=== PATIENT | male | born 1940 | race Caucasian/White ===

== ENCOUNTER 2019-05-23 08:34 | Observation (INO) ==
[2019-05-23] MEDS ORDERED: Dexamethasone 4 MG/ML VIAL ONE (08:43)
[2019-05-23] MEDS ORDERED: Lidocaine -MPF 2% 2 ML VIAL ONE (08:43)
[2019-05-23] MEDS ORDERED: *HR* Succinylcholine 200 MG/10 ML VIAL IVP ONE (08:43)
[2019-05-23] MEDS ORDERED: Ondansetron 4 MG/2 ML VIAL ONE (08:43)
[2019-05-23] MEDS ORDERED: *HR* Rocuronium Bromide 50 MG/5 ML VIAL ONE (08:43)
[2019-05-23] MEDS ORDERED: *HR* FentaNYL (PF) 100 MCG/2 ML VIAL ONE (08:44)
[2019-05-23] MEDS ORDERED: *HR* Propofol 200 MG/20 ML VIAL IVP ONE (08:44)
[2019-05-23] MEDS ORDERED: Celecoxib 200 MG CAPSULE PO ONE (08:58)
[2019-05-23] MEDS ORDERED: Pregabalin 50 MG CAPSULE PO ONE (08:58)
[2019-05-23] MEDS ORDERED: *HR* Promethazine 25 MG/ML VIAL IVP PRN (08:59)
[2019-05-23] MEDS ORDERED: *HR* OxyCODONE Immed Rel 5 MG TABLET PO PRN (08:59)
[2019-05-23] MEDS ORDERED: *HR* HYDROmorphone (PF) 1 MG/ML SYRINGE IVP PRN (08:59)
[2019-05-23] MEDS ORDERED: Ringers Solution, Lactated 1,000 ML IVC SCH ×2 (09:00→09:15)
[2019-05-23] MEDS ORDERED: Albuterol 2.5 MG/3 ML NEBULIZER IH PRN (09:14)
[2019-05-23] MEDS ORDERED: cefOXitin 2,000 MG in Water for inj. (sterile) 20 ML IVP ONE (09:14)
[2019-05-23] MEDS ORDERED: *HR* HYDROcodone/Acet 5/325 mg TABLET PO ONE (10:10)
[2019-05-23] MEDS ORDERED: Naloxone 0.4 MG/ML INJ IVP PRN (13:13)
[2019-05-23] MEDS ORDERED: 0.9 % Sodium Chloride 1,000 ML IVC SCH (13:13)
[2019-05-23] MEDS ORDERED: Ondansetron 4 MG/2 ML VIAL IVP PRN (13:13)
[2019-05-23] MEDS ORDERED: *HR* Metoprolol 5 MG/5 ML VIAL IVP PRN (13:13)
[2019-05-23] MEDS: cefOXitin 2,000 MG in Water for inj. (sterile) 20 ML IVP SCH (16:00)
[2019-05-23] MEDS: Ipratropium/Albuterol Neb 3 ML IH SCH ×2 (16:37→22:10)
[2019-05-23] MEDS: Famotidine 20 MG TABLET PO SCH (20:07)
[2019-05-23] MEDS: *HR* HYDROcodone/Acet 5/325 mg TABLET PO PRN (22:23)
[2019-05-24] MEDS: cefOXitin 2,000 MG in Water for inj. (sterile) 20 ML IVP SCH ×2 (00:23→07:42)
[2019-05-24] MEDS: *HR* HYDROcodone/Acet 5/325 mg TABLET PO PRN (02:30)
[2019-05-24] MEDS: Ipratropium/Albuterol Neb 3 ML IH SCH ×4 (03:10→21:51)
[2019-05-24 05:31] LABS: Basophils % 0.1 %; Hemoglobin 13.6 g/dL (12.9-16.9); Immature Granulocytes % 0.4 % (0-4); Lymphocytes # 0.8 K/mcL (0.6-4.6); Mean Corpuscular HGB Conc 33.2 g/dL (31.6-35.5); Mean Corpuscular Hemoglobin 32.6 pg (28.0-33.3); Mean Corpuscular Volume 98.3 fL (83.0-100.0); Mean Platelet Volume 9.5 fL (9.4-12.4); Monocytes # 0.8 K/mcL (0.0-1.3); Monocytes % 7.1 %; Platelet Count 192 K/mcL (140-400); Red Blood Count 4.17 M/mcL (4.19-5.50); Red Cell Distribution Width 14.3 % (11.5-14.5); Segmented Neutrophils % 85.4 %; White Blood Count 11.8 K/mcL (4.3-11.1)
[2019-05-24 05:42] LABS: Alanine Aminotransferase 76 Units/L (7-52); Albumin 3.5 g/dL (3.5-5.7); Albumin/Globulin Ratio 1.4 (1.1-2.2); Alkaline Phosphatase 90 Units/L (34-104); Aspartate Amino Transferase 55 Units/L (13-39); BUN/Creatinine Ratio 17 (6-26); Bilirubin,Direct 0.3 mg/dL (0.0-0.2); Bilirubin,Total 1.3 mg/dL (0.3-1.0); Blood Urea Nitrogen 13 mg/dL (8-23); Calcium 8.2 mg/dL (8.6-10.3); Carbon Dioxide 22 mEq/L (23-29); Chloride 105 mEq/L (98-107); Globulin 2.5 g/dL (2.4-3.5); Glucose 163 mg/dL (70-105); Osmolality,Calculated 288 (280-300); Potassium 4.3 mEq/L (3.5-5.1); Sodium 137 mEq/L (136-145); eGFR For African Americans > 60 (> 60); eGFR For Non-African Americans > 60 (> 60)
[2019-05-24] MEDS: Famotidine 20 MG TABLET PO SCH ×2 (07:43→20:24)
[2019-05-24] MEDS: Aspirin 81 MG TAB.CHEW PO SCH (09:52)
[2019-05-24] MEDS: *HR* OxyCODONE/APAP 5/325 TABLET PO PRN ×2 (14:39→20:24)
[2019-05-24] MEDS ORDERED: *HR* Heparin 5,000 UNIT/ML VIAL SQ SCH (18:00)
[2019-05-24] MEDS ORDERED: clonazePAM 1 MG TABLET PO SCH (21:00)
[2019-05-25] MEDS: Ipratropium/Albuterol Neb 3 ML IH SCH ×2 (03:17→10:13)
[2019-05-25] MEDS: *HR* OxyCODONE/APAP 5/325 TABLET PO PRN ×2 (04:24→10:29)
[2019-05-25 05:58] LABS: Basophils % 0.3 %; Eosinophils % 0.4 %; Hematocrit 40.1 % (37.5-50.1); Hemoglobin 13.1 g/dL (12.9-16.9); Immature Granulocytes % 0.4 % (0-4); Immature Platelets 1.9 % (1.1-6.1); Lymphocytes # 1.1 K/mcL (0.6-4.6); Mean Corpuscular HGB Conc 32.7 g/dL (31.6-35.5); Mean Corpuscular Hemoglobin 32.6 pg (28.0-33.3); Mean Corpuscular Volume 99.8 fL (83.0-100.0); Mean Platelet Volume 9.5 fL (9.4-12.4); Monocytes # 0.7 K/mcL (0.0-1.3); Monocytes % 9.3 %; Neutrophils # 5.7 K/mcL (1.6-8.9); Platelet Count 188 K/mcL (140-400); Red Blood Count 4.02 M/mcL (4.19-5.50); Red Cell Distribution Width 14.6 % (11.5-14.5); Segmented Neutrophils % 75.6 %; White Blood Count 7.5 K/mcL (4.3-11.1)
[2019-05-25 06:15] LABS: Albumin 3.6 g/dL (3.5-5.7); Albumin/Globulin Ratio 1.6 (1.1-2.2); BUN/Creatinine Ratio 12 (6-26); Bilirubin,Direct 0.2 mg/dL (0.0-0.2); Bilirubin,Indirect 0.8 mg/dL (0.0-1.0); Blood Urea Nitrogen 11 mg/dL (8-23); Calcium 8.5 mg/dL (8.6-10.3); Carbon Dioxide 28 mEq/L (23-29); Chloride 105 mEq/L (98-107); Globulin 2.3 g/dL (2.4-3.5); Glucose 139 mg/dL (70-105); Osmolality,Calculated 294 (280-300); Potassium 3.7 mEq/L (3.5-5.1); Sodium 141 mEq/L (136-145); Total Protein 5.9 g/dL (6.4-8.9); eGFR For African Americans > 60 (> 60); eGFR For Non-African Americans > 60 (> 60)
[2019-05-25] MEDS: Famotidine 20 MG TABLET PO SCH (10:29)
[2019-05-25] MEDS: Aspirin 81 MG TAB.CHEW PO SCH (10:29)
[2019-05-25 11:21] VITALS: BP 165/86
== END 2019-05-25 13:48 | disposition home or self-care (01) ==
LOC: 3ANU 08:34 → SAMDAY 08:34 → 3ANU 13:28
PROVIDERS: ADMIT Surgery; ATTEND Surgery

== ENCOUNTER 2021-04-13 03:32 | Inpatient (IN) ==
[2021-04-13 05:41] LABS: Basophils # 0.1 K/mcL (0.0-0.2); Basophils % 0.7 %; Eosinophils # 0.3 K/mcL (0.0-0.6); Eosinophils % 3.6 %; Hematocrit 41.7 % (37.5-50.1); Hemoglobin 13.3 g/dL (12.9-16.9); Immature Granulocytes % 0.3 % (0-4); Lymphocytes # 1.8 K/mcL (0.6-4.6); Lymphocytes % 25.1 %; Mean Corpuscular HGB Conc 31.9 g/dL (31.6-35.5); Mean Corpuscular Hemoglobin 30.6 pg (28.0-33.3); Mean Corpuscular Volume 96.1 fL (83.0-100.0); Mean Platelet Volume 9.1 fL (9.4-12.4); Monocytes # 0.6 K/mcL (0.0-1.3); Neutrophils # 4.4 K/mcL (1.6-8.9); Platelet Count 201 K/mcL (140-400); Red Blood Count 4.34 M/mcL (4.19-5.50); Red Cell Distribution Width 14.6 % (11.5-14.5); Segmented Neutrophils % 61.3 %; White Blood Count 7.1 K/mcL (4.3-11.1)
[2021-04-13 06:03] LABS: BUN/Creatinine Ratio 22 (6-26); Blood Urea Nitrogen 17 mg/dL (8-23); Calcium 8.8 mg/dL (8.6-10.3); Carbon Dioxide 26 mEq/L (23-29); Chloride 107 mEq/L (98-107); Glucose 97 mg/dL (70-105); Osmolality,Calculated 293 (280-300); Potassium 3.8 mEq/L (3.5-5.1); Sodium 141 mEq/L (136-145); Troponin I < 0.03 ng/mL (< 0.04); eGFR For African Americans > 60 (> 60); eGFR For Non-African Americans > 60 (> 60)
[2021-04-13 06:34] LABS: Influenza A PCR Negative (Negative); Influenza B PCR Negative (Negative); Resp. Syncytial Virus PCR Negative (Negative)
[2021-04-13 06:35] LABS: SARS-CoV-2 by PCR (In House) Negative (Negative)
[2021-04-13] MEDS ORDERED: levoFLOXacin 750 MG/150 ML 750 MG/150 ML BAG IVPB ONE (08:11)
[2021-04-13] MEDS ORDERED: Pantoprazole 40 MG VIAL IVP ONE (08:11)
[2021-04-13] MEDS ORDERED: MethylPREDNISolone 40 MG/ML VIAL IVP ONE (08:11)
[2021-04-13] MEDS ORDERED: Benzonatate 100 MG CAPSULE PO ONE (08:12)
[2021-04-13] MEDS ORDERED: Naloxone 0.4 MG/ML INJ IVP PRN (08:22)
[2021-04-13] MEDS ORDERED: Ondansetron 4 MG/2 ML VIAL IVP PRN (08:22)
[2021-04-13 09:09] LABS: INR 1.1; Prothrombin Time 11.9 Seconds (9.4-12.1)
[2021-04-13 09:11] LABS: Activated Partial Thrombo Time 33.3 Seconds (26.0-36.0)
[2021-04-13] MEDS ORDERED: Dexmedetomidine HCl 400 MCG/100 ML MLS IVC ONE (10:30)
[2021-04-13] MEDS: Ipratropium/Albuterol Neb 3 ML IH SCH ×3 (10:53→20:18)
[2021-04-13] MEDS ORDERED: *HR* Propofol 200 MG/20 ML VIAL IVP ONE (11:01)
[2021-04-13] MEDS ORDERED: *HR* EPINEPHrine 1 MG/10 ML SYRINGE INTRATRACH PRN (11:22)
[2021-04-13] MEDS: FentaNYL (PF) 1,000 MCG/100 ML IV.SOLN IVC SCH ×2 (11:45→17:54)
[2021-04-13] MEDS: MethylPREDNISolone 40 MG/ML VIAL IVP SCH ×2 (11:59→21:21)
[2021-04-13] MEDS: Midazolam HCl 50 MG/100 ML IV.SOLN IVC SCH (11:59)
[2021-04-13] MEDS: 0.9 % Sodium Chloride 1,000 ML IVC SCH ×2 (12:22→21:22)
[2021-04-13 16:49] LABS: ABG Base Excess -1 mEq/L (-2 to 3); ABG HCO3 26 mEq/L (21-27); ABG Oxygen Saturation 98 % (95-98); ABG PCO2 55 mmHg (35-45); ABG PH 7.29 pH Units (7.32-7.45); ABG PO2 110 mmHg (85-104); ABG TCO2 28 mEq/L (20-26); Blood Gas Modality ASSIST CONTROL; Blood Gas VT 450 cc
[2021-04-13 16:53] LABS: Basophils % 0.1 %; Hematocrit 41.6 % (37.5-50.1); Hemoglobin 13.3 g/dL (12.9-16.9); Immature Granulocytes % 0.3 % (0-4); Lymphocytes # 0.5 K/mcL (0.6-4.6); Lymphocytes % 7.1 %; Mean Corpuscular Hemoglobin 31.1 pg (28.0-33.3); Mean Corpuscular Volume 97.4 fL (83.0-100.0); Mean Platelet Volume 9.4 fL (9.4-12.4); Monocytes # 0.1 K/mcL (0.0-1.3); Monocytes % 0.9 %; Neutrophils # 6.4 K/mcL (1.6-8.9); Platelet Count 192 K/mcL (140-400); Red Blood Count 4.27 M/mcL (4.19-5.50); Red Cell Distribution Width 14.7 % (11.5-14.5); Segmented Neutrophils % 91.6 %
[2021-04-13] MEDS ORDERED: Artificial Tears SOLN 15 ML BOTTLE BOTH EYES PRN (17:43)
[2021-04-13] MEDS: Artificial Tears SOLN 15 ML BOTTLE BOTH EYES SCH (21:21)
[2021-04-13] MEDS: Chlorhexidine Rinse 15 ML MOUTHWASH MM SCH (21:21)
[2021-04-14] MEDS ORDERED: Ringers Solution, Lactated 1,000 ML IVC ONE (02:36)
[2021-04-14] MEDS: Ipratropium/Albuterol Neb 3 ML IH SCH ×4 (03:18→21:46)
[2021-04-14] MEDS: FentaNYL (PF) 1,000 MCG/100 ML IV.SOLN IVC SCH ×2 (03:53→09:16)
[2021-04-14 04:27] LABS: ABG Base Excess -4 mEq/L (-2 to 3); ABG HCO3 23 mEq/L (21-27); ABG Oxygen Saturation 93 % (95-98); ABG PCO2 46 mmHg (35-45); ABG PO2 75 mmHg (85-104); ABG TCO2 24 mEq/L (20-26); Blood Gas VT 450 cc
[2021-04-14] MEDS: MethylPREDNISolone 40 MG/ML VIAL IVP SCH ×3 (05:28→19:48)
[2021-04-14] MEDS: Artificial Tears SOLN 15 ML BOTTLE BOTH EYES SCH ×6 (05:55→19:48)
[2021-04-14 06:30] LABS: Basophils % 0.1 %; Hemoglobin 11.9 g/dL (12.9-16.9); Immature Granulocytes % 0.3 % (0-4); Lymphocytes # 0.4 K/mcL (0.6-4.6); Lymphocytes % 6.3 %; Mean Corpuscular HGB Conc 31.3 g/dL (31.6-35.5); Mean Platelet Volume 9.6 fL (9.4-12.4); Monocytes # 0.2 K/mcL (0.0-1.3); Monocytes % 2.4 %; Neutrophils # 6.3 K/mcL (1.6-8.9); Platelet Count 184 K/mcL (140-400); Red Blood Count 3.84 M/mcL (4.19-5.50); Red Cell Distribution Width 14.6 % (11.5-14.5); Segmented Neutrophils % 90.9 %
[2021-04-14 06:50] LABS: BUN/Creatinine Ratio 32 (6-26); Blood Urea Nitrogen 25 mg/dL (8-23); Calcium 7.8 mg/dL (8.6-10.3); Carbon Dioxide 23 mEq/L (23-29); Chloride 108 mEq/L (98-107); Glucose 160 mg/dL (70-105); Osmolality,Calculated 296 (280-300); Potassium 3.9 mEq/L (3.5-5.1); Sodium 139 mEq/L (136-145); eGFR For African Americans > 60 (> 60); eGFR For Non-African Americans > 60 (> 60)
[2021-04-14] MEDS: Chlorhexidine Rinse 15 ML MOUTHWASH MM SCH ×2 (08:24→19:47)
[2021-04-14] MEDS: 0.9 % Sodium Chloride 1,000 ML IVC SCH ×2 (08:24→21:55)
[2021-04-14] MEDS: Pantoprazole 40 MG VIAL IVP SCH (08:24)
[2021-04-14] MEDS: levoFLOXacin 750 MG/150 ML 750 MG/150 ML BAG IVPB SCH (08:25)
[2021-04-14] MEDS: Midazolam HCl 50 MG/100 ML IV.SOLN IVC SCH (09:50)
[2021-04-14] MEDS ORDERED: Melatonin 3 MG TABLET PO PRN (17:54)
[2021-04-15] MEDS: Artificial Tears SOLN 15 ML BOTTLE BOTH EYES SCH ×3 (00:51→07:09)
[2021-04-15] MEDS: GuaiFENesin/Codeine Oral Soln 5 ML UDC PO PRN ×2 (01:44→03:52)
[2021-04-15] MEDS: MethylPREDNISolone 40 MG/ML VIAL IVP SCH ×2 (03:52→12:04)
[2021-04-15] MEDS ORDERED: Menthol 1 EACH LOZENGE PO PRN (03:58)
[2021-04-15] MEDS: Ipratropium/Albuterol Neb 3 ML IH SCH ×4 (03:59→23:00)
[2021-04-15 05:50] LABS: Basophils % 0.1 %; Hematocrit 38.9 % (37.5-50.1); Hemoglobin 11.8 g/dL (12.9-16.9); Immature Granulocytes % 0.5 % (0-4); Lymphocytes # 0.7 K/mcL (0.6-4.6); Lymphocytes % 5.9 %; Mean Corpuscular HGB Conc 30.3 g/dL (31.6-35.5); Mean Corpuscular Hemoglobin 30.6 pg (28.0-33.3); Mean Platelet Volume 9.5 fL (9.4-12.4); Monocytes # 0.5 K/mcL (0.0-1.3); Platelet Count 210 K/mcL (140-400); Red Blood Count 3.85 M/mcL (4.19-5.50); Segmented Neutrophils % 89.5 %
[2021-04-15 05:52] LABS: White Blood Count 11.2 K/mcL (4.3-11.1)
[2021-04-15 06:02] LABS: BUN/Creatinine Ratio 25 (6-26); Blood Urea Nitrogen 23 mg/dL (8-23); Calcium 7.9 mg/dL (8.6-10.3); Carbon Dioxide 21 mEq/L (23-29); Chloride 111 mEq/L (98-107); Glucose 146 mg/dL (70-105); Osmolality,Calculated 300 (280-300); Potassium 4.1 mEq/L (3.5-5.1); Sodium 142 mEq/L (136-145); eGFR For African Americans > 60 (> 60); eGFR For Non-African Americans > 60 (> 60)
[2021-04-15] MEDS: Chlorhexidine Rinse 15 ML MOUTHWASH MM SCH (07:09)
[2021-04-15] MEDS ORDERED: clonazePAM 1 MG TABLET PO PRN (07:38)
[2021-04-15] MEDS: levoFLOXacin 750 MG/150 ML 750 MG/150 ML BAG IVPB SCH (08:02)
[2021-04-15] MEDS: Pantoprazole 40 MG VIAL IVP SCH (08:02)
[2021-04-15] MEDS: Midazolam HCl 50 MG/100 ML IV.SOLN IVC SCH (08:24)
[2021-04-15] MEDS ORDERED: NON-FORMULARY MEDICATION 1 EACH EACH (Pantoprazole Sodium [Protonix] 40 MG Tablet.Dr) PO SCH (09:00)
[2021-04-15] MEDS ORDERED: Budesonide/Formoterol 160/4.5 1 PUFF INH IH SCH (10:00)
[2021-04-15] MEDS ORDERED: Nicotine 21 MG PATCH.TD24 TD PRN ×2 (11:02→14:48)
[2021-04-15] MEDS: 0.9 % Sodium Chloride 1,000 ML IVC SCH (12:45)
[2021-04-15] MEDS ORDERED: Melatonin 3 MG TABLET PO PRN (14:48)
[2021-04-15] MEDS ORDERED: Ondansetron 4 MG/2 ML VIAL IVP PRN (14:48)
[2021-04-15] MEDS ORDERED: Naloxone 0.4 MG/ML INJ IVP PRN (14:48)
[2021-04-15] MEDS: clonazePAM 1 MG TABLET PO PRN (20:06)
[2021-04-15] MEDS: Budesonide/Formoterol 160/4.5 1 PUFF INH IH SCH (23:00)
[2021-04-16] MEDS: Ipratropium/Albuterol Neb 3 ML IH SCH ×4 (03:36→20:43)
[2021-04-16 05:20] LABS: VBG Ionized Calcium 1.15 mmol/L (1.15-1.35)
[2021-04-16 05:24] LABS: Basophils % 0.1 %; Hematocrit 35.5 % (37.5-50.1); Hemoglobin 11.4 g/dL (12.9-16.9); Immature Granulocytes % 0.6 % (0-4); Lymphocytes # 0.9 K/mcL (0.6-4.6); Mean Corpuscular HGB Conc 32.1 g/dL (31.6-35.5); Mean Corpuscular Hemoglobin 31.6 pg (28.0-33.3); Mean Corpuscular Volume 98.3 fL (83.0-100.0); Mean Platelet Volume 9.3 fL (9.4-12.4); Monocytes # 0.8 K/mcL (0.0-1.3); Monocytes % 7.8 %; Neutrophils # 8.3 K/mcL (1.6-8.9); Platelet Count 175 K/mcL (140-400); Red Blood Count 3.61 M/mcL (4.19-5.50); Segmented Neutrophils % 82.5 %
[2021-04-16 05:34] LABS: Alanine Aminotransferase 12 Units/L (7-52); Albumin 3.1 g/dL (3.5-5.7); Albumin/Globulin Ratio 1.4 (1.1-2.2); Alkaline Phosphatase 74 Units/L (34-104); Aspartate Amino Transferase 14 Units/L (13-39); BUN/Creatinine Ratio 38 (6-26); Bilirubin,Total 0.6 mg/dL (0.3-1.0); Blood Urea Nitrogen 28 mg/dL (8-23); Calcium 7.8 mg/dL (8.6-10.3); Carbon Dioxide 24 mEq/L (23-29); Chloride 112 mEq/L (98-107); Globulin 2.2 g/dL (2.4-3.5); Glucose 123 mg/dL (70-105); Magnesium 2.2 mg/dL (1.6-2.6); Osmolality,Calculated 301 (280-300); Phosphorous 1.6 mg/dL (2.7-4.5); Potassium 4.1 mEq/L (3.5-5.1); Sodium 142 mEq/L (136-145); Total Protein 5.3 g/dL (6.4-8.9); eGFR For African Americans > 60 (> 60); eGFR For Non-African Americans > 60 (> 60)
[2021-04-16] MEDS: MethylPREDNISolone 40 MG/ML VIAL IVP SCH (09:31)
[2021-04-16] MEDS: Budesonide/Formoterol 160/4.5 1 PUFF INH IH SCH ×2 (09:41→20:44)
[2021-04-16] MEDS: GuaiFENesin/Codeine Oral Soln 5 ML UDC PO PRN (13:42)
[2021-04-16] MEDS: levoFLOXacin 750 MG/150 ML 750 MG/150 ML BAG IVPB SCH (13:42)
[2021-04-16] MEDS: Menthol 1 EACH LOZENGE PO PRN (13:53)
[2021-04-16] MEDS ORDERED: Gadolinium Contrast Agent (WT Based) IV PRN (14:21)
[2021-04-16] MEDS: clonazePAM 1 MG TABLET PO PRN (20:52)
[2021-04-17] MEDS ORDERED: *HR* LORazepam 2 MG/ML VIAL IVP PRN
[2021-04-17] MEDS ORDERED: Hydrocortisone Sodium Succ 100 MG/2 ML VIAL IVP PRN
[2021-04-17] MEDS ORDERED: Famotidine 20 MG/2 ML VIAL IVP PRN
[2021-04-17] MEDS ORDERED: Etoposide 210 MG in 0.9 % Sodium Chloride Excel Bg 500 ML IV SCH
[2021-04-17] MEDS ORDERED: SODIUM CHLORIDE 0.9% IV SCH
[2021-04-17] MEDS ORDERED: Albuterol 2.5 MG/3 ML NEBULIZER IH PRN
[2021-04-17] MEDS ORDERED: 0.9 % Sodium Chloride 500 ML IVC SCH
[2021-04-17] MEDS ORDERED: Etoposide 200 MG in 0.9 % Sodium Chloride Excel Bg 500 ML IVPB SCH
[2021-04-17] MEDS ORDERED: CARBOPLATIN IV SCH
[2021-04-17] MEDS ORDERED: Prochlorperazine 10 MG/2 ML VIAL IVP PRN
[2021-04-17] MEDS ORDERED: EPINEPHrine 1 MG/ML VIAL SQ PRN
[2021-04-17] MEDS: GuaiFENesin/Codeine Oral Soln 5 ML UDC PO PRN (02:23)
[2021-04-17] MEDS: Ipratropium/Albuterol Neb 3 ML IH SCH ×4 (03:38→21:11)
[2021-04-17] MEDS ORDERED: Isovue-370 500 ML BOTTLE IVP ONE (08:06)
[2021-04-17] MEDS: MethylPREDNISolone 40 MG/ML VIAL IVP SCH (09:04)
[2021-04-17] MEDS: Budesonide/Formoterol 160/4.5 1 PUFF INH IH SCH ×2 (10:21→21:11)
[2021-04-17 12:01] LABS: Eosinophils % 0.1 %; Hematocrit 37.9 % (37.5-50.1); Immature Granulocytes % 0.3 % (0-4); Lymphocytes # 0.6 K/mcL (0.6-4.6); Mean Corpuscular HGB Conc 31.7 g/dL (31.6-35.5); Mean Corpuscular Hemoglobin 30.7 pg (28.0-33.3); Mean Corpuscular Volume 96.9 fL (83.0-100.0); Mean Platelet Volume 9.6 fL (9.4-12.4); Monocytes # 0.7 K/mcL (0.0-1.3); Monocytes % 8.8 %; Neutrophils # 6.5 K/mcL (1.6-8.9); Platelet Count 158 K/mcL (140-400); Red Blood Count 3.91 M/mcL (4.19-5.50); Red Cell Distribution Width 14.6 % (11.5-14.5); Segmented Neutrophils % 82.8 %; White Blood Count 7.9 K/mcL (4.3-11.1)
[2021-04-17 12:19] LABS: BUN/Creatinine Ratio 26 (6-26); Blood Urea Nitrogen 21 mg/dL (8-23); Carbon Dioxide 29 mEq/L (23-29); Chloride 107 mEq/L (98-107); Glucose 108 mg/dL (70-105); Osmolality,Calculated 296 (280-300); Potassium 3.8 mEq/L (3.5-5.1); Sodium 141 mEq/L (136-145); eGFR For African Americans > 60 (> 60); eGFR For Non-African Americans > 60 (> 60)
[2021-04-17] MEDS: levoFLOXacin 750 MG/150 ML 750 MG/150 ML BAG IVPB SCH (12:53)
[2021-04-17] MEDS: Menthol 1 EACH LOZENGE PO PRN (12:53)
[2021-04-17] MEDS ORDERED: Dexamethasone Sodium Phos/PF 10 MG/ML VIAL IVP SCH (13:30)
[2021-04-17] MEDS: Fosaprepitant Dimeglumine 150 MG in 0.9 % Sodium Chloride 150 ML IVPB SCH (14:29)
[2021-04-17] MEDS ORDERED: SODIUM CHLORIDE 0.9% IVPB SCH (15:00)
[2021-04-17] MEDS ORDERED: CARBOPLATIN IVPB SCH (15:00)
[2021-04-17] MEDS: OLANZapine 5 MG TAB.RAPDIS PO SCH (22:09)
[2021-04-17] MEDS: clonazePAM 1 MG TABLET PO PRN (22:10)
[2021-04-18] MEDS: Ipratropium/Albuterol Neb 3 ML IH SCH ×4 (03:49→21:29)
[2021-04-18 05:17] LABS: BUN/Creatinine Ratio 36 (6-26); Blood Urea Nitrogen 21 mg/dL (8-23); Calcium 7.8 mg/dL (8.6-10.3); Carbon Dioxide 28 mEq/L (23-29); Chloride 108 mEq/L (98-107); Glucose 137 mg/dL (70-105); Magnesium 2.2 mg/dL (1.6-2.6); Osmolality,Calculated 295 (280-300); Phosphorous 3.4 mg/dL (2.7-4.5); Potassium 4.4 mEq/L (3.5-5.1); Sodium 140 mEq/L (136-145); eGFR For African Americans > 60 (> 60); eGFR For Non-African Americans > 60 (> 60)
[2021-04-18] MEDS: MethylPREDNISolone 40 MG/ML VIAL IVP SCH (08:31)
[2021-04-18] MEDS: Budesonide/Formoterol 160/4.5 1 PUFF INH IH SCH ×2 (10:31→21:29)
[2021-04-18] MEDS ORDERED: *HR* LORazepam 2 MG/ML VIAL IVP PRN (12:30)
[2021-04-18] MEDS ORDERED: Famotidine 20 MG/2 ML VIAL IVP PRN (12:30)
[2021-04-18] MEDS ORDERED: EPINEPHrine 1 MG/ML VIAL SQ PRN (12:30)
[2021-04-18] MEDS ORDERED: Hydrocortisone Sodium Succ 100 MG/2 ML VIAL IVP PRN (12:30)
[2021-04-18] MEDS ORDERED: Albuterol 2.5 MG/3 ML NEBULIZER IH PRN (12:30)
[2021-04-18] MEDS ORDERED: 0.9 % Sodium Chloride 500 ML IVC SCH (12:30)
[2021-04-18] MEDS ORDERED: Etoposide 200 MG in 0.9 % Sodium Chloride Excel Bg 500 ML IVPB ONE (13:00)
[2021-04-18] MEDS: Fosaprepitant Dimeglumine 150 MG in 0.9 % Sodium Chloride 150 ML IVPB SCH (14:20)
[2021-04-18] MEDS: levoFLOXacin 750 MG/150 ML 750 MG/150 ML BAG IVPB SCH (15:26)
[2021-04-18 16:22] LABS: Hematocrit 38.1 % (37.5-50.1); Hemoglobin 12.2 g/dL (12.9-16.9); Immature Granulocytes % 0.4 % (0-4); Lymphocytes # 0.4 K/mcL (0.6-4.6); Lymphocytes % 6.7 %; Mean Corpuscular Hemoglobin 31.2 pg (28.0-33.3); Mean Corpuscular Volume 97.4 fL (83.0-100.0); Mean Platelet Volume 9.7 fL (9.4-12.4); Monocytes # 0.2 K/mcL (0.0-1.3); Monocytes % 3.9 %; Neutrophils # 5.1 K/mcL (1.6-8.9); Platelet Count 166 K/mcL (140-400); Red Blood Count 3.91 M/mcL (4.19-5.50); Red Cell Distribution Width 13.9 % (11.5-14.5); White Blood Count 5.7 K/mcL (4.3-11.1)
[2021-04-18] MEDS: OLANZapine 5 MG TAB.RAPDIS PO SCH (20:30)
[2021-04-18] MEDS: clonazePAM 1 MG TABLET PO PRN (20:36)
[2021-04-19] MEDS: Ipratropium/Albuterol Neb 3 ML IH SCH ×4 (03:52→20:10)
[2021-04-19 06:23] LABS: BUN/Creatinine Ratio 34 (6-26); Blood Urea Nitrogen 27 mg/dL (8-23); Calcium 7.9 mg/dL (8.6-10.3); Carbon Dioxide 28 mEq/L (23-29); Chloride 109 mEq/L (98-107); Glucose 149 mg/dL (70-105); Magnesium 2.3 mg/dL (1.6-2.6); Osmolality,Calculated 304 (280-300); Potassium 4.3 mEq/L (3.5-5.1); Sodium 143 mEq/L (136-145); eGFR For African Americans > 60 (> 60); eGFR For Non-African Americans > 60 (> 60)
[2021-04-19 07:26] LABS: Hematocrit 36.2 % (37.5-50.1); Immature Granulocytes % 0.4 % (0-4); Lymphocytes # 0.7 K/mcL (0.6-4.6); Lymphocytes % 9.3 %; Mean Corpuscular HGB Conc 32.6 g/dL (31.6-35.5); Mean Corpuscular Hemoglobin 31.3 pg (28.0-33.3); Monocytes # 0.6 K/mcL (0.0-1.3); Monocytes % 7.6 %; Neutrophils # 6.1 K/mcL (1.6-8.9); Platelet Count 169 K/mcL (140-400); Red Blood Count 3.77 M/mcL (4.19-5.50); Red Cell Distribution Width 13.8 % (11.5-14.5); Segmented Neutrophils % 82.7 %; White Blood Count 7.3 K/mcL (4.3-11.1)
[2021-04-19 07:33] LABS: Hemoglobin 11.8 g/dL (12.9-16.9)
[2021-04-19] MEDS: Budesonide/Formoterol 160/4.5 1 PUFF INH IH SCH ×3 (10:38→23:45)
[2021-04-19] MEDS ORDERED: *HR* LORazepam 2 MG/ML VIAL IVP PRN (12:30)
[2021-04-19] MEDS ORDERED: Albuterol 2.5 MG/3 ML NEBULIZER IH PRN (12:30)
[2021-04-19] MEDS ORDERED: Hydrocortisone Sodium Succ 100 MG/2 ML VIAL IVP PRN (12:30)
[2021-04-19] MEDS ORDERED: Etoposide 200 MG in 0.9 % Sodium Chloride Excel Bg 500 ML IVPB ONE (12:30)
[2021-04-19] MEDS ORDERED: EPINEPHrine 1 MG/ML VIAL SQ PRN (12:30)
[2021-04-19] MEDS ORDERED: Famotidine 20 MG/2 ML VIAL IVP PRN (12:30)
[2021-04-19] MEDS ORDERED: 0.9 % Sodium Chloride 500 ML IVC SCH (12:30)
[2021-04-19] MEDS: Fosaprepitant Dimeglumine 150 MG in 0.9 % Sodium Chloride 150 ML IVPB SCH (13:22)
[2021-04-19] MEDS: levoFLOXacin 750 MG/150 ML 750 MG/150 ML BAG IVPB SCH (16:03)
[2021-04-19 18:07] LABS: Uric Acid 4.5 mg/dL (2.3-7.6)
[2021-04-19] MEDS: OLANZapine 5 MG TAB.RAPDIS PO SCH (20:38)
[2021-04-19] MEDS: clonazePAM 1 MG TABLET PO PRN (20:38)
[2021-04-20] MEDS: Ipratropium/Albuterol Neb 3 ML IH SCH ×3 (03:39→15:45)
[2021-04-20 05:10] LABS: Eosinophils # 0.1 K/mcL (0.0-0.6); Eosinophils % 1.1 %; Hematocrit 38.5 % (37.5-50.1); Hemoglobin 12.2 g/dL (12.9-16.9); Immature Granulocytes % 0.3 % (0-4); Lymphocytes # 1.3 K/mcL (0.6-4.6); Lymphocytes % 20.7 %; Mean Corpuscular HGB Conc 31.7 g/dL (31.6-35.5); Mean Corpuscular Hemoglobin 30.5 pg (28.0-33.3); Mean Corpuscular Volume 96.3 fL (83.0-100.0); Mean Platelet Volume 9.8 fL (9.4-12.4); Monocytes # 0.1 K/mcL (0.0-1.3); Neutrophils # 4.7 K/mcL (1.6-8.9); Platelet Count 152 K/mcL (140-400); Segmented Neutrophils % 75.9 %; White Blood Count 6.1 K/mcL (4.3-11.1)
[2021-04-20 05:20] LABS: BUN/Creatinine Ratio 31 (6-26); Blood Urea Nitrogen 22 mg/dL (8-23); Calcium 7.7 mg/dL (8.6-10.3); Carbon Dioxide 29 mEq/L (23-29); Chloride 108 mEq/L (98-107); Glucose 111 mg/dL (70-105); Osmolality,Calculated 296 (280-300); Phosphorous 3.5 mg/dL (2.7-4.5); Potassium 4.1 mEq/L (3.5-5.1); Sodium 141 mEq/L (136-145); Uric Acid 4.5 mg/dL (2.3-7.6); eGFR For African Americans > 60 (> 60); eGFR For Non-African Americans > 60 (> 60)
[2021-04-20] MEDS: Budesonide/Formoterol 160/4.5 1 PUFF INH IH SCH (09:33)
[2021-04-20 09:51] VITALS: BP 130/73; PULSE 69; TEMP 97.9
[2021-04-20 13:35] VITALS: O2SAT 96
[2021-04-20] MEDS: Fosaprepitant Dimeglumine 150 MG in 0.9 % Sodium Chloride 150 ML IVPB SCH (16:01)
== END 2021-04-20 17:37 | disposition home or self-care (01) | DRG 166 ==
LOC: EMEROOARM 03:32 → SUATTDRO 09:24 → ICNU 09:24 → 2ANU 04-15 23:35 → 3ANU 04-17 19:42
PROVIDERS: ADMIT Internal Medicine; ATTEND Internal Medicine